=== PATIENT | female | born 1995 | race Caucasian/White ===

== ENCOUNTER 2020-08-10 08:40 | Observation (INO) | payer MEDICARE ==
[~2020-08-10] VITALS: Ht 152.4 cm; Wt 89.8 kg
[2020-08-13] MEDS ORDERED: PREN1COM10 (07:52)
== END 2020-08-10 09:54 | disposition home or self-care (01) ==
LOC: 8 EST LDRP 08:40
PROVIDERS: ADMIT Obstetrics & Gynecology; ATTEND Obstetrics & Gynecology
DX: O62.9 Abnormality of forces of labor, unspecified (principal); Z3A.40 40 weeks gestation of pregnancy
CPT/HCPCS: 59025; G0378; 99281